=== PATIENT | female | born 1985 | race Two or more races ===

== ENCOUNTER 2020-05-01 21:34 | Emergency (ER) | payer OTHER ==
[~2020-05-01] VITALS: Ht 157.5 cm; Wt 86.2 kg
--- NOTE | 2020-05-01 21:45 | NUR ---
ED Nurse Note: Pt walked into the ED from home with c/o difficulty of breathing onset 5 days ago. Pt stated she was around people with covid. Pt also stated having headache and runny nose. Pt has hx of asthma but without maintenance meds. PT denies fever/chills, CP, N/V/D, Patient is AAOX4 and ambulatory. Pt was never tested for covid
--- NOTE | 2020-05-01 21:50 | NUR ---
ED Nurse Note: ERMD at bedside
[2020-05-01 22:00] VITALS: BP 117/70
[2020-05-01] MEDS ORDERED: Albuterol/Ipratropium 3ml neb HHN ONE (22:00)
[2020-05-01] MEDS ORDERED: dexAMETHasone 10mg/ml Inj IV ONE (22:00)
--- NOTE | 2020-05-01 22:12 | Emergency Room Report ---
History of Present Illness General Chief Complaint: Upper Respiratory Illness Source: Patient Present Illness HPI 35-year-old female with history of diabetes and asthma here with shortness of breath and productive cough for 3 days. Patient says that she believes she was exposed to COVID-19 5 days ago. Does not use albuterol or has recently been given steroids or hospitalization for her asthma. Has never been hospitalized for asthma. Has felt subjectively febrile is not checked her temperature. No chills, chest pain, back pain, abdominal pain, nausea, vomiting, diarrhea, dysuria. No leg pain or leg swelling. Allergies: Coded Allergies: No Known Allergies (Unverified , 05/01/20) COVID-19 Screening Contact w/high risk pt: Yes Experienced COVID-19 symptoms?: Yes COVID-19 Testing performed TAPE MAKER: No - has not been tested COVID-19 Screening: Negative COVID-19 Patient History Last Menstrual Period: Nursing Documentation-H Hx Asthma: Yes Hx Diabetes: Yes Review of Systems All Other Systems: negative except mentioned in HPI Physical Exam Vital Signs Date Time Temp Pulse Resp B/P (MAP) Pulse Ox O2 Delivery O2 Flow Rate FiO2 05/01/20 21:48 98.2 104 38 117/70 (86) 96 Room Air Sp02 EP Interpretation: reviewed, normal General Appearance: no apparent distress, alert, GCS 15, non-toxic Head: normocephalic, atraumatic Eyes: bilateral eye normal inspection, bilateral eye PERRL ENT: hearing grossly normal, normal pharynx, no angioedema, normal voice Neck: full range of motion, supple/symm/no masses Respiratory: chest non-tender, speaking full sentences, other - Mildly tachypneic 26 breaths/min. Mild rales in all lung thomas Cardiovascular #1: regular rate, rhythm, no edema Cardiovascular #2: 2+ carotid (R), 2+ carotid (L), 2+ radial (R), 2+ radial (L), 2+ dorsalis pedis (R), 2+ dorsalis pedis (L) Gastrointestinal: normal bowel sounds, non tender, soft, non-distended, no guarding, no rebound Rectal: deferred Genitourinary: normal inspection, no CVA tenderness Musculoskeletal: back normal, normal range of motion, gait/station normal, non- tender Neurologic: alert, motor strength/tone normal, oriented x3, sensory intact, responsive, speech normal Psychiatric: judgement/insight normal, memory normal, mood/affect normal, no suicidal/homicidal ideation Lymphatic: no adenopathy Medical Decision Making Diagnostic Impression: Primary Impression: Upper respiratory infection Additional Impression: Upper respiratory symptom ER Course Chest x-ray: Diffuse interstitial infiltrates in all lung thomas worse in the lower lobes. Normal heart borders. No effusions. No free air under the diaphragm. No pneumothorax EKG: NSR, no ischemia, intervals WNL. No ectopy. Rate 105 bpm Rhythm strip: patient monitored for arrhythmias - no malignant dysrhythmias, runs of PVCs, nor pauses noted Laboratory Tests Test 05/01/20 22:00 White Blood Count 5.9 K/UL (4.8-10.8) Red Blood Count 4.92 M/UL (4.20-5.40) Hemoglobin 12.8 G/DL (12.0-16.0) Hematocrit 39.1 % (37.0-47.0) Mean Corpuscular Volume 79 FL (80-99) L Mean Corpuscular Hemoglobin 26.0 PG (27.0-31.0) L Mean Corpuscular Hemoglobin Concent 32.7 G/DL (32.0-36.0) Red Cell Distribution Width 11.9 % (11.6-14.8) Platelet Count 264 K/UL (150-450) Mean Platelet Volume 8.0 FL (6.5-10.1) Neutrophils (%) (Auto) 79.4 % (45.0-75.0) H Lymphocytes (%) (Auto) 18.0 % (20.0-45.0) L Monocytes (%) (Auto) 2.5 % (1.0-10.0) Eosinophils (%) (Auto) 0.0 % (0.0-3.0) Basophils (%) (Auto) 0.1 % (0.0-2.0) Sodium Level 136 MMOL/L (136-145) Potassium Level 3.4 MMOL/L (3.5-5.1) L Chloride Level 100 MMOL/L (98-107) Carbon Dioxide Level 22 MMOL/L (21-32) Anion Gap 14 mmol/L (5-15) Blood Urea Nitrogen 3 mg/dL (7-18) L Creatinine 0.7 MG/DL (0.55-1.30) Estimated Glomerular Filtration Rate > 60 mL/min (>60) Glucose Level 206 MG/DL (74-106) H Calcium Level 10.0 MG/DL (8.5-10.1) Total Bilirubin 0.3 MG/DL (0.2-1.0) Aspartate Amino Transferase (AST) 24 U/L (15-37) Alanine Aminotransferase (ALT) 23 U/L (12-78) Alkaline Phosphatase 63 U/L (46-116) Troponin I 0.000 ng/mL (0.000-0.056) Total Protein 7.7 G/DL (6.4-8.2) Albumin 3.1 G/DL (3.4-5.0) L Globulin 4.6 g/dL Albumin/Globulin Ratio 0.7 (1.0-2.7) L Microbiology Date/Time Source Procedure Growth Status 05/01/20 22:00 Nasopharynx SARS-CoV-2 RdRp Gene Assay - Final Complete 35-year-old female here with shortness of breath. Patient had normal oxygen saturation was mildly tachypneic and tachycardic on arrival to the emergency department. She was given 1 L of IV normal saline with improvement in her tachycardia. She has a history of asthma and has not recently used any albuterol and does not have a nebulizer. She was given a 15-minute DuoNeb treatment and said that she felt slightly improved. Chest x-ray consistent with COVID-19 infection. She tested positive for COVID-19 here in the emergency department. CBC and CMP largely unremarkable. Troponin negative. EKG normal. She was given Decadron in the emergency department. Given a prescription for albuterol, multivitamin, azithromycin. Was told to return to the emergency department worsening shortness of breath. She expressed understanding and was discharged. Last Vital Signs Date Time Temp Pulse Resp B/P (MAP) Pulse Ox O2 Delivery O2 Flow Rate FiO2 05/01/20 22:00 98.2 105 38 117/70 96 Room Air Scripts Albuterol Sulfate* (PROAIR HFA*) 8.5 Gm Hfa.aer.ad 2 PUFFS INH Q6H, #8.5 GM 0 Refills Prov: Dwaine Ervin M.D. 05/01/20 Albuterol Sulfate* (ALBUTEROL SULFATE HHN*) 2.5 Mg/3 Ml Vial.neb 2.5 MG HHN Q4H PRN for Shortness of Breath, #25 VIAL Prov: Dwaine Ervin M.D. 05/01/20 Ascorbic Acid* (VITAMIN C*) 250 Mg Tablet 250 MG ORAL DAILY, #14 TAB 0 Refills Prov: Dwaine Ervin M.D. 05/01/20 Cholecalciferol (Vitamin D3) (Vitamin D3*) 25 Mcg Capsule 25 MCG PO DAILY for Supplement for 14 Days, CAP Prov: Dwaine Ervin M.D. 05/01/20 Azithromycin* (ZITHROMAX*) 250 Mg Tablet 250 MG ORAL DAILY, #6 TAB 0 Refills Take two tables once daily for 1 day, then one tablet once daily for 4 days. Prov: Dwaine Ervin M.D. 05/01/20 Dwaine Ervin M.D. May 01, 2020 22:12
--- NOTE | 2020-05-01 22:13 | Diagnostic Imaging Report ---
EXAM: XR Chest, 1 View CLINICAL HISTORY: SOB TECHNIQUE: Frontal view of the chest. COMPARISON: No relevant prior studies available. FINDINGS: Lungs: Hypoventilatory exam with patchy opacities in the left greater than right lung bases, suspicious for an acute infectious/inflammatory process such as multifocal pneumonia. Pleural space: Unremarkable. No pneumothorax. Heart: Unremarkable. No cardiomegaly. Mediastinum: Unremarkable. Bones/joints: Unremarkable. Soft tissues: Subcentimeter calcifications overlying the expected insertions of the both the right and left supraspinatus tendons may represent calcific tendinosis. IMPRESSION: 1. Patchy opacities within the left greater than right lung bases are suspicious for an acute infectious/inflammatory process such as multifocal pneumonia. 2. Mild calcifications overlying the supraspinatus tendon insertions bilaterally may represent calcific tendinosis.
[2020-05-01 22:27] LABS: BASOPHILS % (AUTO) 0.1 % (0.0-2.0); HEMATOCRIT 39.1 % (37.0-47.0); HEMOGLOBIN 12.8 G/DL (12.0-16.0); MEAN CORPUSCULAR VOLUME 79 FL (80-99); MONOCYTES % (AUTO) 2.5 % (1.0-10.0); NEUTROPHILS % (AUTO) 79.4 % (45.0-75.0); PLATELET COUNT 264 K/UL (150-450); RED BLOOD COUNT 4.92 M/UL (4.20-5.40); RED CELL DISTRIBUTION WIDTH 11.9 % (11.6-14.8); WHITE BLOOD COUNT 5.9 K/UL (4.8-10.8)
[2020-05-01 22:30] LABS: ALANINE AMINOTRANSFERASE 23 U/L (12-78); ALBUMIN 3.1 G/DL (3.4-5.0); ALBUMIN/GLOBULIN RATIO 0.7 (1.0-2.7); ALKALINE PHOSPHATASE 63 U/L (46-116); ANION GAP 14 mmol/L (5-15); ASPARTATE AMINO TRANSFERASE 24 U/L (15-37); BILIRUBIN,TOTAL 0.3 MG/DL (0.2-1.0); BLOOD UREA NITROGEN 3 mg/dL (7-18); CARBON DIOXIDE 22 MMOL/L (21-32); CHLORIDE 100 MMOL/L (98-107); POTASSIUM 3.4 MMOL/L (3.5-5.1); SODIUM 136 MMOL/L (136-145)
--- NOTE | 2020-05-01 22:33 | NUR ---
ED Nurse Note: Blood and rapid covid test sent Xray done
[2020-05-01 22:50] LABS: CREATININE 0.7 MG/DL (0.55-1.30)
[2020-05-01] MEDS ORDERED: VITAMIN D325 MC1 PO (23:01)
[2020-05-01] MEDS ORDERED: ALBUTEROL2.5 MG/3 M HHN (23:01)
[2020-05-01] MEDS ORDERED: VITAMIN C250 MG ORAL (23:01)
[2020-05-01] MEDS ORDERED: ZITHROMAX250 MG ORAL (23:01)
[2020-05-01] MEDS ORDERED: PROAIR HFA8.5 GM INH (23:16)
[2020-05-01 23:34] VITALS: BP 127/84
--- NOTE | 2020-05-01 23:34 | NUR ---
ER DISCHARGE NOTE: Patient is cleared to be discharged per ERMD, pt is aox4, on room air, with stable vital signs. pt was given dc and prescription instructions, pt was able to verbalize understanding, pt id band and iv site removed without complications. pt is able to ambulate with steady gait. pt took all belongings.
== END 2020-05-01 23:35 | disposition home or self-care (01) ==
LOC: EMR 22:00
DX: J06.9 Acute upper respiratory infection, unspecified (principal); R06.02 Shortness of breath; J45.909 Unspecified asthma, uncomplicated; E11.9 Type 2 diabetes mellitus without complications; Z20.822 Contact with and (suspected) exposure to COVID-19
CPT/HCPCS: 36415; 71045; 80053; 84484; 85025; 94640; 96361; 96374; U0002; Z7502; 99284; J7620